=== PATIENT | male | born 1980 | race Caucasian/White ===

== ENCOUNTER 2019-04-20 01:26 | Inpatient (IN) | payer OTHER ==
[~2019-04-20] VITALS: Ht 175.3 cm; Wt 83.9 kg
--- NOTE | 2019-04-20 01:56 | NUR ---
SE RECIBE PTE ALERTA Y ORIENTADO X3,REFIERE DOLOR EN AMBOS HOMBROS LE COMENZO HACE 2 MCCAIN ,DOLOR EN EL PECHO LE COMENZO HOY ,RASH EN EL CUERPO.
--- NOTE | 2019-04-20 02:09 | NUR ---
PT ALERTA Y ORIENTADO X3, AL MOMENTO EN COMPANIA DE FAMILIAR. SE ORIENTA A PT Y SE UBICA EN CPU SE CONECTA A MONITOR CARDIACO, OXIMETRIA DE PULSO CONTINUA. MRS ROXANA LO CANALIZA Y LE COLECTA MUESTRAS BAJO MEDIDAS ASEPTICAS. SE LE ADMINISTRA ASPIRINA 325MG MASTICABLE. PT TOLERA AL MOMENTO. SE MANTIENE EN OBSERVACION POR CAMBIOS.
--- NOTE | 2019-04-20 07:30 | NUR ---
SE NOTIFICA A DR YOUNG BP MANUAL 80/60 [facility] Y SUDORACION DEL PACIENTE, DR YOUNG ORDENA ADMINISTRAR 0.9% NSS A 200 ML/HR.
[2019-04-22] MEDS ORDERED: COLCHICINE0.6 MG PO (15:24)
[2019-04-22] MEDS ORDERED: IBUPROFEN600 MG PO (15:24)
[2019-04-22] MEDS ORDERED: INTESTINEX680 M1 PO (15:25)
[2019-04-22] MEDS ORDERED: PROTONIX40 MG PO (15:25)
[2019-04-22] MEDS ORDERED: AMOX-CLAV 875-1 EACH PO (15:43)
== END 2019-04-22 16:40 | disposition home or self-care (01) | DRG 306 ==
LOC: ER 01:26 → ICU-2 09:49 → SEC-K 04-22 10:49 → MEDJ 04-22 11:01
PROVIDERS: ADMIT Internal Medicine
PROC: B246ZZZ Ultrasonography of Right and Left Heart (ICD-10-PCS; principal; 2019-04-20)
PROC: 4A12X4Z Monitoring of Cardiac Electrical Activity, External Approach (ICD-10-PCS; 2019-04-20)
PROC: BW40ZZZ Ultrasonography of Abdomen (ICD-10-PCS; 2019-04-20)
DX: I34.0 Nonrheumatic mitral (valve) insufficiency (principal); I33.0 Acute and subacute infective endocarditis; I30.8 Other forms of acute pericarditis; R07.89 Other chest pain; K52.89 Other specified noninfective gastroenteritis and colitis

== ENCOUNTER 2021-07-19 02:38 | Emergency (ER) | payer OTHER ==
[~2021-07-19] VITALS: Ht 175.3 cm; Wt 83.9 kg
[~2021-07-19 02:38] MED LIST: AMOX-CLAV 875-1 EACH PO; COLCHICINE0.6 MG PO; IBUPROFEN600 MG PO; INTESTINEX680 M1 PO; PROTONIX40 MG PO
== END 2021-07-19 12:58 | disposition home or self-care (01) ==
LOC: ER 02:38
DX: S01.80XA Unspecified open wound of other part of head, initial encounter (principal); R11.10 Vomiting, unspecified; R10.9 Unspecified abdominal pain; K92.1 Melena; K22.11 Ulcer of esophagus with bleeding; W19.XXXA Unspecified fall, initial encounter; Y92.89 Other specified places as the place of occurrence of the external cause
CPT/HCPCS: 70450; 74177; Q9965